=== PATIENT | female | born 1955 | race Caucasian/White ===

== ENCOUNTER 2020-05-09 00:01 | Emergency (ER) | payer MEDICARE, MEDICAID ==
[~2020-05-09] VITALS: Ht 165.1 cm; Wt 75.0 kg
[~2020-05-09 00:01] MED LIST: ATEN25TA PO; TRAZ-175 PO
--- NOTE | 2020-05-09 00:10 | NUR ---
PT BIB [facility] WITH PIV ESTABLISHED EN ROUTE AFTER PT FOUND TO BE 220/110 WITH EMS BP CUFF. PT WAS AT HOME AND HAD A "SEVERE NOSEBLEED". PT WITH HISTORY OF HTN, WHO RAN OUT OF ATENOLOL SCRIPT YESTERDAY. UPON ARRIVAL TO [facility], PT HAS NOSEBLEED CONTROLLED WITH CLIP FROM EMS. PT CHANGED INTO GOWN IN [facility] AND ATTACHED TO VS AND PAIN COORDINATOR. PT PROVIDED WARM BLANKET AND EDUCATED ON ER PROCESS. PT VERBALIZES UNDERSTANDING. AWAITING ERP AT THIS TIME FOR HISTORY AND ASSESSMENT. CALL LIGHT IS WITHIN REACH. NO ORDERS RECEIVED AT THIS TIME.
[2020-05-09] MEDS ORDERED: ENALAPRIL 20MG TABLET PO ONE (00:30)
[2020-05-09] MEDS ORDERED: ACETAMINOPHEN 325 MG TABLET ONE (00:43)
[2020-05-09] MEDS ORDERED: DIPHENHYDRAMINE 25 MG CAPSULE ONE (00:43)
[2020-05-09] MEDS ORDERED: hydrALAzine 20 MG/ML, 1ML ONE ×2 (00:49→01:48)
--- NOTE | 2020-05-09 00:55 | NUR ---
PT MEDICATED PER DEC. PT RESTING COMFORTABLY IN [place];
[2020-05-09] MEDS ORDERED: ACETAMINOPHEN 325 MG TABLET PO ONE (01:00)
[2020-05-09] MEDS ORDERED: hydrALAzine 20 MG/ML, 1ML IV ONE ×2 (01:00→02:00)
[2020-05-09] MEDS ORDERED: DIPHENHYDRAMINE 25 MG CAPSULE PO ONE (01:00)
--- NOTE | 2020-05-09 01:33 | NUR ---
received report from DEMETRIUS Anderson.
--- NOTE | 2020-05-09 01:36 | NUR ---
REPORT OF PT TO DEMETRIUS FORREST. ALL QUESTIONS ANSWERED.
--- NOTE | 2020-05-09 02:05 | NUR ---
patient states she cant breathe on her nose. saling bullets provied. re-medicated to lower Blood pressure.
--- NOTE | 2020-05-09 02:28 | NUR ---
patient discharged with prescription and instruction. verbalized understanding. cab voucher provided.
[2020-05-09 02:30] VITALS: BP 152/84
== END 2020-05-09 02:32 | disposition home or self-care (01) ==
LOC: ED 00:29
DX: R04.0 Epistaxis (principal); R51 Headache; I10 Essential (primary) hypertension; F17.200 Nicotine dependence, unspecified, uncomplicated
CPT/HCPCS: 96374; 96376; 99284; J0360; Q0163